=== PATIENT | male | born 1980 | race Caucasian/White ===

== ENCOUNTER 2016-06-12 10:48 | Emergency (ER) | payer OTHER ==
[~2016-06-12] VITALS: Ht 170.2 cm; Wt 113.4 kg
[~2016-06-12 10:48] MED LIST: AMOXIL500 MG PO; ASPIRIN EC325 MG PO; TESSALON PERLE100 MG PO
--- NOTE | 2016-06-12 11:38 | ED NECK/BACK PAIN COMPLAINT ---
History of Present Illness General Chief Complaint: Low Back Pain/Injury Stated Complaint: LOWER BACK PAIN Source: patient, old records Exam Limitations: no limitations Vital Signs & Intake/Output Vital Signs & Intake/Output Vital Signs Date Time Temp Pulse Resp B/P Pulse O2 O2 Flow FiO2 Ox Delivery Rate 06/12 1330 98.0 82 18 156/70 98 Room Air 06/12 1051 97.1 88 20 163/90 98 Room Air Allergies Coded Allergies: NO KNOWN ALLERGIES (10/11/10) Reconcile Medications Cyclobenzaprine HCl 5 MG TABLET 1 TAB PO TIDPRN PRN PAIN Methylprednisolone. (Medrol) 4 MG TAB.DS.PK 1 DP PO AD RADICULOPATHY 6 on day 1 then reduce by one tablet daily until gone Oxycodone HCl/Acetaminophen (Percocet 5-325 MG Tablet) 5 MG-325 MG TABLET 1 TAB PO BID PRN PAIN Triage Note: PT TO ED C/O LOWER BACK PAIN. HAS HERNAITED DISKS AND IS SEEING A SPECIALIST. PAIN IS WORSE THAN USUAL. PT ALSO C/O "KIDNEY PAIN" SINCE LAST NIGHT. DENIES S/S. TOOK MOTRIN YESTERDAY WITH NO RELIEF. Triage Nurses Notes Reviewed? yes Onset: Gradual Duration: day(s): (2), constant, waxing and waning Timing: recent history Quality/Severity: mild, moderate Location: lumbar spine, paraspinous muscles Radiation: buttocks, upper legs Method of Injury: unknown Loss of Consciousness: no loss of consciousness Modifying Factors: movement, pain medication, rest Associated Symptoms: denies HPI: 36-year-old male with history of herniated disc for which she is seen by a spine physician in [place] presents emergency room complaining of bilateral lower back pain that radiates into his buttocks and down his legs for the past 2 days. He describes symptoms as a tightness and does not feel similar to his herniated disc pain in the past. He took 2 ibuprofen yesterday without improvement. No urinary or bowel incontinence. The patient states that his "kidneys have been bothering him" and when asked where he points to his lower back, he denies any urinary urgency frequency dysuria or hematuria. He states that yesterday his testicles felt "sensitive" secondary to the pain however denies noting any bulges or swelling to his scrotum. He states he woke up this morning and that sensitivity was no longer there. He denies any penile pain abdominal pain nausea vomiting or diarrhea. There's been no recent injury or trauma, no fever or chills Past History Travel History Traveled to [place] past 21 day No Medical History Any Pertinent Medical History? see below for history Neurological: NONE EENT: NONE Cardiovascular: HEART MURMMER TETRALOGY OF FALLOT Respiratory: NONE Gastrointestinal: NONE Hepatic: NONE Renal: NONE Musculoskeletal: chronic back pain Psychiatric: NONE Endocrine: NONE Blood Disorders: NONE Cancer(s): NONE Influenza Vaccine: 04/07/16 Tetanus Vaccine: Surgical History Surgical History: SURGICAL REVISION Psychosocial History What is your primary language Yakut Tobacco Use: Current Daily Use Daily Tobacco Use Amount/Type: => 5 Cigarettes daily ETOH Use: denies use Illicit Drug Use: denies illicit drug use Family History Hx Contributory? No Review of Systems Review of Systems Constitutional: Reports: see HPI. All Other Systems: Reviewed and Negative Comments Review of systems: See HPI, All other systems negative. Constitutional, no chills no fever, no malaise no weight loss HEENT: No visual changes no sore throat no congestion, no ear pain Cardiovascular: No chest pain , no palpitation , no orthopnea no ankle swelling Skin, no jaundice no rashes, no change in skin Respiratory: No dyspnea no cough no sputum no hemoptysis GI: No nausea no vomiting, no diarrhea, no bloating/constipation : No dysuria No hematuria, no frequency, no discharge Muscle skeletal: No joint pain, no joint swelling, no back pain, no neck pain, Neurologic: No numbness no confusion, no headache Psych: No stress no anxiety no depression,. Heme/endocrine: No bruising no bleeding no polyuria no polydipsia Immunology: No lymphadenopathy, no splenectomy Physical Exam Physical Exam General Appearance: well developed/nourished, no apparent distress, alert, awake Neck: normal inspection, supple, full range of motion Comments: Well-developed well-nourished person in no acute distress HEENT: Normal EENT exam; PERRL, EOMI, HEAD is atraumatic. moist mucous membranes. Neck: Supple, normal range of motion Back: No midline tenderness no erythema and no ecchymosis there is bilateral paralumbar muscle tenderness palpation, no CVA tenderness. Full range of motion Cardiovascular: Regular rate and rhythms no murmurs rubs Respiratory: No respiratory distress. Patient speaking in full complete sentences. Breath sounds clear to auscultation bilaterally: NO W/R/R Abdomen: Soft, nontender nondistended, no appreciable organomegaly. Normal bowel sounds. No rebound/guarding, Extremity: No edema, positive straight leg raise bilaterally full range of motion of extremities, normal and equal pulses bilaterally, 5 out of 5 strength noted to bilateral upper and lower extremities Neuro: Alert oriented x3, motor sensory normal, There were no obvious focal neurologic abnormalities. Skin: No appreciable rash on exposed skin, skin is warm and dry. Psych: Mood and affect is normal, memory and judgment is normal. Progress Differential Diagnosis: cauda equina syn, herniated disc, myofascial strain, pyelo/UTI, sciatica, spinal cord inj, T/L spine injury, ureterolithiasis, ABSCESS Plan of Care: Orders Procedure Date/time Status URINALYSIS 06/12 1139 Complete Laboratory Tests 06/12/16 1149: Urinalysis LIGHT H, Urine Color YEL, Urine Clarity CLEAR, Urine pH 6.0, Ur Specific Goodman 1.025, Urine Protein TRACE H, Urine Ketones NEG, Urine Nitrite NEG, Urine Bilirubin NEG, Urine Urobilinogen 1.0, Ur Leukocyte Esterase TRACE H , Ur Microscopic SEDIMENT EXAMINED, Urine RBC 1-3, Urine WBC 5-10 H, Ur Epithelial Cells RARE, Urine Bacteria FEW H, Urine Mucus FEW, Urine Hemoglobin TRACE-INTACT H, Urine Glucose NEG Labs ordered CAT scan ordered patient medicated Percocet 1 06/12/2016 1:35:48 PM discussed the patient at length his CAT scan findings urinalysis. Patient reports the Percocet helped improve his pain, I advised he needs close follow-up with his spine physician in [place] Patient clinically looks well. No urinary bowel dysfunction. No numbness in the genital area. Strength intact. Gross sensation intact. Patient resting comfortably and in no apparent distress. Pain is worse with range of motion. Pain is reproducible IN back with no bruising or ecchymosis noted. . Patient is to follow-up with primary care doctor. May need MRI of the lower back at some point time. No concerns for cauda equina at this point time. I considered this diagnosis but patient does not have any symptoms consistent with cauda equina. Patient has no secondary causes of back pain. No cardiac, pulmonary, or abdominal complaints. No abdominal pain on exam. Cardiac pulmonary exam within normal limits. No rashes, afebrile, denies recent weight loss, dizziness, lightheadedness Prescription for Percocet and Medrol Dosepak and Flexeril all 3 medications which he's had in the past for exacerbations of his pain with improvement or provided I discussed the medications that they will receive with the patient. I gave them signs and symptoms that could indicate an adverse reaction. I have advised them to limit their activities until they can see how they respond to the medication. (MARILUZ GODFREY,DAVID) Diagnostic Imaging: Viewed by Me: CT Scan. Discussed w/RAD: CT Scan. Radiology Impression: PATIENT: GWEN DALEY PRESENT AGE: 36 PATIENT ACCOUNT NO: [id number] : 81 LOCATION: [facility] ORDERING PHYSICIAN: DAVID GODFREY SERVICE DATE: 06/12/16 EXAM TYPE: CAT - CT LUMB SPINE WO IV CONTRAST EXAMINATION: CT LUMBAR SPINE WITHOUT CONTRAST CLINICAL INFORMATION: Bilateral lower back pain. Evaluate for pathology. COMPARISON: None TECHNIQUE: Helical non-contrast CT images were obtained through the lumbar spine and 1.25 and 2.5 mm axial reconstructions were reviewed along with sagittal and coronal MPRs. DLP: 1252 mGy-cm FINDINGS: The vertebral bodies are normally aligned. There are degenerative disc changes present from L3-L4 through L5-S1 with the degenerative changes most prominent in the mild to moderate at L5-S1. Facets unremarkable. There is no fracture or bone lesion. SPINAL LEVELS: T12-L1: Schmorl's node inferior T12 endplate without clinical significance L1-L2: Minimal Schmorl's nodes present within the inferior endplate of L1 likely without any clinical significance L2-L3: Normal. L3-L4: Minimal degenerative disc change manifested by minimal endplate osteophytes anteriorly no significant disc protrusion. Central canal and neural foramina are normal. Facets normal. L4-L5: Minimal endplate osteophytes anteriorly. No disc space narrowing or disc protrusion facets normal. Central canal and neural foramina are normal. L5-S1: Mild disc space narrowing with disc osteophyte complex formation most prominent posteriorly. Facets normal. These degenerative changes result in mild narrowing the central canal and neural foramina bilaterally IMPRESSION: Overall mild spondylosis of lumbar sacral spine with degenerative changes most prominent at L5-S1. L5-S1- there is mild to moderate degenerative disc change with some mild resultant narrowing of the central canal and neural foramina bilaterally DICTATED BY: CHRISTELLE JEAN MD DATE/TIME DICTATED:06/12/161230 [employer] SALESPERSON:LUCHO DATE/TIME TRANSCRIBED:06/12/161230 CONFIDENTIAL, DO NOT COPY WITHOUT APPROPRIATE AUTHORIZATION. <Electronically signed in Other Vendor System> SIGNED BY: CHRISTELLE JEAN MD 06/12/16 1330 Departure Departure Time of Disposition: 1329 Disposition: HOME OR SELF CARE Condition: Stable Clinical Impression Primary Impression: Lumbar radiculopathy Referrals: BALAJI LUTZ,JAVIER Jain (PCP/Family) Additional Instructions: Follow-up with your spine physician this week. Percocet as directed for breakthrough pain use caution as this is a narcotic highly addictive and will make you drowsy no driving or drinking alcohol while taking. Flexeril and Medrol Dosepak as directed. Return to emergency room at anytime sooner with any concerns or worsening of your symptoms Departure Forms: Customer Survey General Discharge Information Prescriptions: Current Visit Scripts Methylprednisolone. (Medrol) 1 DP PO AD #1 DP 6 on day 1 then reduce by one tablet daily until gone Oxycodone HCl/Acetaminophen (Percocet 5-325 MG Tablet) 1 TAB PO BID PRN PAIN #10 TAB Cyclobenzaprine HCl 1 TAB PO TIDPRN PRN PAIN #15 TAB
[2016-06-12 13:30] VITALS: BP 156/70
--- NOTE | 2016-06-12 13:30 | CT SCAN REPORT ---
EXAMINATION: CT LUMBAR SPINE WITHOUT CONTRAST CLINICAL INFORMATION: Bilateral lower back pain. Evaluate for pathology. COMPARISON: None TECHNIQUE: Helical non-contrast CT images were obtained through the lumbar spine and 1.25 and 2.5 mm axial reconstructions were reviewed along with sagittal and coronal MPRs. DLP: 1252 mGy-cm FINDINGS: The vertebral bodies are normally aligned. There are degenerative disc changes present from L3-L4 through L5-S1 with the degenerative changes most prominent in the mild to moderate at L5-S1. Facets unremarkable. There is no fracture or bone lesion. SPINAL LEVELS: T12-L1: Schmorl's node inferior T12 endplate without clinical significance L1-L2: Minimal Schmorl's nodes present within the inferior endplate of L1 likely without any clinical significance L2-L3: Normal. L3-L4: Minimal degenerative disc change manifested by minimal endplate osteophytes anteriorly no significant disc protrusion. Central canal and neural foramina are normal. Facets normal. L4-L5: Minimal endplate osteophytes anteriorly. No disc space narrowing or disc protrusion facets normal. Central canal and neural foramina are normal. L5-S1: Mild disc space narrowing with disc osteophyte complex formation most prominent posteriorly. Facets normal. These degenerative changes result in mild narrowing the central canal and neural foramina bilaterally IMPRESSION: Overall mild spondylosis of lumbar sacral spine with degenerative changes most prominent at L5-S1. L5-S1- there is mild to moderate degenerative disc change with some mild resultant narrowing of the central canal and neural foramina bilaterally
[2016-06-12] MEDS ORDERED: MEDROL4 M2 PO (13:31)
[2016-06-12] MEDS ORDERED: PERCOCET 5-3251 EACH PO (13:31)
[2016-06-12] MEDS ORDERED: CYCLOBENZAPRINE5 M2 PO (13:31)
== END 2016-06-12 13:39 ==
LOC: ERH 10:48
DX: M54.16 Radiculopathy, lumbar region (principal)
CPT/HCPCS: 81001

== ENCOUNTER 2016-07-15 14:09 | Emergency (ER) | payer OTHER ==
[~2016-07-15] VITALS: Ht 170.2 cm; Wt 108.9 kg
[~2016-07-15 14:09] MED LIST changes: +CYCLOBENZAPRINE5 M2 PO; +MEDROL4 M2 PO; +PERCOCET 5-3251 EACH PO
[2016-07-15 14:19] VITALS: BP 113/74
--- NOTE | 2016-07-15 15:46 | ED DYSPNEA/ASTHMA COMPLAINT ---
History of Present Illness General Chief Complaint: Dyspnea (COPD, CHF, Other) Stated Complaint: LEFT UPPER QUAD PAIN Vital Signs & Intake/Output Vital Signs & Intake/Output Vital Signs Date Time Temp Pulse Resp B/P Pulse O2 O2 Flow FiO2 Ox Delivery Rate 07/15 1419 98.3 94 18 113/74 97 Room Air Room Air Allergies Coded Allergies: NO KNOWN ALLERGIES (10/11/10) Reconcile Medications Cyclobenzaprine HCl 5 MG TABLET 1 TAB PO TIDPRN PRN PAIN Methylprednisolone. (Medrol) 4 MG TAB.DS.PK 1 DP PO AD RADICULOPATHY 6 on day 1 then reduce by one tablet daily until gone Oxycodone HCl/Acetaminophen (Percocet 5-325 MG Tablet) 5 MG-325 MG TABLET 1 TAB PO BID PRN PAIN Triage Note: TRIAGE: 36 Y/O MALE PRESENTS S/P PLAYING BASKETBALL, FELL ON LEFT SIDE RIBS, "FELT A CRACK NEAR RIBS", SHORTNESS OF BREATH NOTED BY PATIENT. SPO2 97%. Past History Travel History Traveled to [place] past 21 day No Medical History Neurological: NONE EENT: NONE Cardiovascular: HEART MURMMER TETRALOGY OF FALLOT Respiratory: NONE Gastrointestinal: NONE Hepatic: NONE Renal: NONE Musculoskeletal: chronic back pain Psychiatric: NONE Endocrine: NONE Blood Disorders: NONE Cancer(s): NONE Tetanus Vaccine: Surgical History Surgical History: SURGICAL REVISION Psychosocial History What is your primary language Hong Konger Tobacco Use: Current Daily Use Daily Tobacco Use Amount/Type: => 5 Cigarettes daily ETOH Use: denies use Illicit Drug Use: denies illicit drug use Progress Plan of Care: Orders Procedure Date/time Status XRY-RIBS UNILATERAL-RIGHT 07/15 1455 Active Departure Departure Condition: Stable Referrals: BALAJI LUTZ,JAVIER Jain (PCP/Family) Departure Forms: Customer Survey General Discharge Information
--- NOTE | 2016-07-15 15:48 | ED CARDIAC/CP/PALPITATIONS ---
History of Present Illness General Chief Complaint: Dyspnea (COPD, CHF, Other) Stated Complaint: LEFT UPPER QUAD PAIN Source: patient Exam Limitations: no limitations Vital Signs & Intake/Output Vital Signs & Intake/Output Vital Signs Date Time Temp Pulse Resp B/P Pulse O2 O2 Flow FiO2 Ox Delivery Rate 07/15 1419 98.3 94 18 113/74 97 Room Air Room Air ED Intake and Output 07/16 0000 07/15 1200 Intake Total Output Total Balance Patient 240 lb Weight Allergies Coded Allergies: NO KNOWN ALLERGIES (10/11/10) Reconcile Medications Cyclobenzaprine HCl 5 MG TABLET 1 TAB PO TIDPRN PRN PAIN Meloxicam (Mobic) 15 MG TABLET 1 TAB PO DAILY PRN PAIN Methylprednisolone. (Medrol) 4 MG TAB.DS.PK 1 DP PO AD RADICULOPATHY 6 on day 1 then reduce by one tablet daily until gone Oxycodone HCl/Acetaminophen (Percocet 5-325 MG Tablet) 5 MG-325 MG TABLET 1 TAB PO BID PRN PAIN Triage Note: TRIAGE: 36 Y/O MALE PRESENTS S/P PLAYING BASKETBALL, FELL ON LEFT SIDE RIBS, "FELT A CRACK NEAR RIBS", SHORTNESS OF BREATH NOTED BY PATIENT. SPO2 97%. Triage Nurses Notes Reviewed? yes Onset: Abrupt Duration: constant Timing: recent history Activities at Onset: activity HPI: Patient is a 36-year-old male who presents emergency room saying that today while playing basketball patient slipped and fell on the left lateral aspect of his rib region resulting cute onset of pain. Patient states that her extremity movements and deep inhalation makes worse. Denies any head strike. Denies any neck pain or back pain. No medications given prior to arrival. Denies any shortness of breath or hemoptysis (PANDA GODFREY,DAVID) Past History Travel History Traveled to [place] past 21 day No Medical History Any Pertinent Medical History? see below for history Neurological: NONE EENT: NONE Cardiovascular: HEART MURMMER TETRALOGY OF FALLOT Respiratory: NONE Gastrointestinal: NONE Hepatic: NONE Renal: NONE Musculoskeletal: chronic back pain Psychiatric: NONE Endocrine: NONE Blood Disorders: NONE Cancer(s): NONE Tetanus Vaccine: Surgical History Surgical History: SURGICAL REVISION Psychosocial History What is your primary language Qatari Tobacco Use: Current Daily Use Daily Tobacco Use Amount/Type: => 5 Cigarettes daily ETOH Use: denies use Illicit Drug Use: denies illicit drug use Family History Hx Contributory? No (DAVID JACKSON) Review of Systems Review of Systems Constitutional: Reports: no symptoms. EENTM: Reports: no symptoms. Respiratory: Reports: see HPI. Denies: cough, short of breath. Cardiovascular: Reports: see HPI, chest pain. GI: Reports: no symptoms. Genitourinary: Reports: no symptoms. Musculoskeletal: Reports: no symptoms. Skin: Reports: no symptoms. Neurological/Psychological: Reports: no symptoms. Hematologic/Endocrine: Reports: no symptoms. Immunologic/Allergic: Reports: no symptoms. All Other Systems: Reviewed and Negative (DAVID JACKSON) Physical Exam Physical Exam General Appearance: mild distress Cardiovascular: regular rate/rhythm Comments: HEENT: Normal EENT exam, . Neck: Supple, no lymphadenopathy, normal range of motion without pain or tenderness Back: Nontender, no CVA tenderness. Cardiovascular: Regular rate and rhythms no murmurs rubs or gallops, normal JVP Respiratory: Normal inspection no gross deformity no signs of trauma or step-off deformity left lateral and anterior point tenderness noted to intercostal region No respiratory distress.breath sounds clear to auscultation bilaterally Abdomen: Soft, nontender nondistended, no appreciable organomegaly. Normal bowel sounds. No ascites Extremity: No edema, no calf tenderness to palpation, normal and equal pulses. Neuro: Alert oriented x3, motor sensory normal, Skin: No appreciable rash on exposed skin, skin is warm and dry. Psych: Mood and affect is normal, memory and judgment is normal. Core Measures ACS in differential dx? No Severe Sepsis Present: No Septic Shock Present: No (DAVID JACKSON) Progress Differential Diagnosis: AMI, aortic dissection, atrial fibrillation, CHF/pulm edema, costochondritis, intracranial hemorrhage, musculoskeletal pain, myocarditis, pancreatitis, pericarditis, pneumonia, pneumothorax, PSVT, pulmonary embolism, PUD/GERD, PVCs/PACs, respiratory failure, rib fracture, sepsis, unstable angina, V-fib/V-Tach Plan of Care: Orders Procedure Date/time Status XRY-RIBS UNILATERAL-LEFT 07/15 1556 Active XRY-CHEST XRAY, PA AND LATERAL 07/15 1557 Active XRY-RIBS UNILATERAL-RIGHT 07/15 1455 Active PT IS currently is in no respiratory distress, clear lungs to auscultation bilaterally x-rays currently are pending Patient has no tenderness noted to right rib region however x-rays are dictating that there is concern of a nondisplaced rib fracture. No rib fracture noted to left ribs. Upon discharge patient looks well no apparent distress and will comply with discharge instructions and had no questions. (PANDA GODFREY,DAVID) Diagnostic Imaging: Viewed by Me: Radiology Read. Radiology Impression: acute abnormality Initial ED EKG: none Comments: PATIENT: GWEN DALEY PRESENT AGE: 36 PATIENT ACCOUNT NO: [id number] : 81 LOCATION: [facility] ORDERING PHYSICIAN: DAVID GODFREY SERVICE DATE: 07/15/165024 EXAM TYPE: RAD - XRY-RIBS UNILATERAL-LEFT; XRY-RIBS UNILATERAL-RIGHT EXAMINATION: XR RIBS, BILATERAL CLINICAL INFORMATION: 36-year-old male with history of fall, bilateral rib pain. COMPARISON: Chest done on 06/04/2015. TECHNIQUE: Single frontal view of the chest and 3 views each of both hemithoraces, total of 7 images. FINDINGS: CHEST: Persistent stable apparent obliteration of the left cardiomediastinal silhouette is noted with evidence of a radiopaque valve prosthesis projecting in the region of the left perihilar space, similar to prior study dated 06/04/2015. This may represent postsurgical changes with large mediastinal fat. Please correlate clinically as to the nature of surgery. The remainder of the aerated lung gallagher bilaterally appear clear. There is specifically no evidence of any hemopneumothorax or lung contusion identified. The dedicated rib series shows nondisplaced fracture involving posterior lateral aspect of the right 10th rib and no definite evidence of any displaced fracture within the left hemithorax. IMPRESSION: 1. Nondisplaced subtle rib fracture is present at the posterolateral aspect of the right 10th rib. 2. No radiographic evidence of any right hemithoracic hemopneumothorax and/or lung contusion. 3. Stable likely postsurgical changes within the left hemithorax in the form of apparent obliteration of the left cardiac outline and a radiopaque valve prosthesis at left perihilar region, similar to prior study dated 06/04/2015. Please correlate clinically as to the nature of surgery. (DAVID JACKSON) Departure Departure Disposition: HOME OR SELF CARE Condition: Stable Clinical Impression Primary Impression: Right rib fracture Secondary Impressions: Contusion of rib on left side Referrals: BALAJI LUTZ,JAVIER Jain (PCP/Family) Additional Instructions: As discussed begin icing the area directly 20 minutes every 2 hours. Begin the prescription MELOXICAM for pain and inflammation. If symptoms worsen return to emergency. Prescription is waiting a [facility] pharmacy. Follow up in one week with your primary care doctor if no better Departure Forms: Customer Survey General Discharge Information Prescriptions: Current Visit Scripts Meloxicam (Mobic) 1 TAB PO DAILY PRN PAIN #15 TAB (DAVID JACKSON) PA/ACADEMIC COACH Co-Sign Statement Statement: ED Attending supervision documentation- [] I saw and evaluated the patient. I have also reviewed all the pertinent lab results and diagnostic results. I agree with the findings and the plan of care as documented in the PA's/ACADEMIC COACH's documentation. [X] I have reviewed the ED Record and agree with the PA's/ACADEMIC COACH's documentation. [] Additions or exceptions (if any) to the PAs/ACADEMIC COACH's note and plan are summarized below: [] (PRINCESS LUTZ,EARNESTINE) Critical Care Note Critical Care Note Critical Care Time: non-applicable (DAVID JACKSON)
--- NOTE | 2016-07-15 16:30 | RADIOLOGY REPORT ---
EXAMINATION: XR RIBS, BILATERAL CLINICAL INFORMATION: 36-year-old male with history of fall, bilateral rib pain. COMPARISON: Chest done on 06/04/2015. TECHNIQUE: Single frontal view of the chest and 3 views each of both hemithoraces, total of 7 images. FINDINGS: CHEST: Persistent stable apparent obliteration of the left cardiomediastinal silhouette is noted with evidence of a radiopaque valve prosthesis projecting in the region of the left perihilar space, similar to prior study dated 06/04/2015. This may represent postsurgical changes with large mediastinal fat. Please correlate clinically as to the nature of surgery. The remainder of the aerated lung gallagher bilaterally appear clear. There is specifically no evidence of any hemopneumothorax or lung contusion identified. The dedicated rib series shows nondisplaced fracture involving posterior lateral aspect of the right 10th rib and no definite evidence of any displaced fracture within the left hemithorax. IMPRESSION: 1. Nondisplaced subtle rib fracture is present at the posterolateral aspect of the right 10th rib. 2. No radiographic evidence of any right hemithoracic hemopneumothorax and/or lung contusion. 3. Stable likely postsurgical changes within the left hemithorax in the form of apparent obliteration of the left cardiac outline and a radiopaque valve prosthesis at left perihilar region, similar to prior study dated 06/04/2015. Please correlate clinically as to the nature of surgery.
[2016-07-15] MEDS ORDERED: MOBIC15 M1 PO (16:48)
== END 2016-07-15 16:30 ==
LOC: ERH 14:09
DX: S22.32XA Fracture of one rib, left side, initial encounter for closed fracture (principal); S20.212A Contusion of left front wall of thorax, initial encounter; W01.0XXA Fall on same level from slipping, tripping and stumbling without subsequent striking against object, initial encounter; Y93.67 Activity, basketball; Y92.9 Unspecified place or not applicable
CPT/HCPCS: 71100-LT; 71100-RT